=== PATIENT | female | born 1990 | race Caucasian/White ===

== ENCOUNTER 2021-09-03 21:46 | Emergency (ER) | payer MEDICAID, SELFPAY ==
[2021-09-03 23:34] VITALS: BP 122/75; PULSE 67; RESP 14; TEMP 36.8; O2SAT 98; BMI 29.2
--- NOTE | 2021-09-03 23:55 | ED_ITS ---
HPI - Ear Problem General Chief complaint: Ear Problems Stated complaint: ear pain Source: patient Mode of arrival: ambulatory Limitations: no limitations History of Present Illness HPI Narrative: 31-year-old female presents for right ear pain after jumping into water and landing on her ear. She states to have this throbbing pain in her ear, and has pain in the ear when moving her jaw. She did not report any fevers or chills, denies loss of consciousness, or any other pain. MD Complaint: ear pain and decreased hearing Location: right ear Duration: constant Severity: moderate Relieving factors: nothing Exacerbating factors: chewing Context: trauma and recent swimming Discharge from ear: no Associated symptoms ear: decreased hearing Treatment prior to arrival: none Related Data Previous Rx's Medication Instructions Recorded amoxicillin 875 mg-potassium 1 tab PO Q12H 7 days #14 tabs 09/04/21 clavulanate 125 mg tablet ciprofloxacin 0.3 %-dexamethasone 4 drp otic (ears) BID 7 days #7.5 09/04/21 0.1 % ear drops,suspension mL (Ciprodex) Allergies Allergy/AdvReac Type Severity Reaction Status Date / Time aspirin [ASPIRIN] Allergy Unknown THROAT Unverified 10/30/19 18:12 CLOSES Review of Systems Review of Systems: Constitutional: No Fever, No Chills ENT/Mouth: Positive right ear Ear Pain, No Hoarseness, No sore throat Eyes: No Eye Pain, No Swelling, No Redness, No Foreign Body Cardiovascular: No Chest Pain, No SOB Respiratory: No Cough, No Dyspnea Gastrointestinal: No Nausea, No Vomiting, No Diarrhea, No abdominal Pain Genitourinary: No Dysuria, No Hematuria Musculoskeletal: No joint pain, No Myalgias, No Joint Swelling Skin: No Skin lacerations, No rash Neuro: No Weakness, No Numbness, No Paresthesias, No Loss of Consciousness, No Dizziness, No Headache Psych: No Anxiety/Panic, No Depression Heme/Lymph: no easy bruising, no Lymphadenopathy Endocrine: No Polyuria, No Polydipsia Yes all other systems are reviewed and are negative [facility] Past Medical History Attestation statement: The following information was validated with the patient. Source: old records reviewed Social History Social History Advance Directives: No Physical Exam Vital Signs: Vital Signs: Last Vital Signs Temp 98.3 F 09/03/21 23:34 Pulse 67 09/03/21 23:34 Resp 14 09/03/21 23:34 BP 122/75 09/03/21 23:34 Pulse Ox 98 09/03/21 23:34 O2 Del Method 09/03/21 23:34 BMI result Body Mass Index 29.2 Appearance: Alert. Oriented X3. No acute distress. Eyes: Pupils equal, round and reactive to light. ENT: Pharynx normal. Right tympanic membrane erythematous and bulging, intact, umbo and cone of light visualized. Left tympanic membrane intact. Neck: Normal inspection. Neck supple. No mastoid tenderness. CVS: Normal heart rate and rhythm. Pulses normal. Respiratory: No respiratory distress. Breath sounds normal. Abdomen: Soft and nontender. Skin: Skin warm and dry. Normal skin color. Normal skin turgor. Extremities: No lower extremity edema. Gait well-balanced well coordinated. Neuro: No motor deficit. No sensory deficit. Cranial nerves 2-12 intact. Course Course Course Narrative: 31-year-old female presents with right ear pain after landing on her right ear while jumping into water. Does not report any head or neck pain. As pain to the ear when moving her jaw. Right tympanic membrane is bulging and erythematous. Intact, a bow and cone of light visualized. No tenderness to the tragus or mastoid. No vertebral tenderness or step-offs. Plan of care to treat for otitis media, and otitis externa with Augmentin and Ciprodex drops. This is a [place] injury, will update Tdap vaccine at this time. 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 Patient does understand that she must follow-up with primary care physician later this week if pain persists. Patient verbalized understanding of and agrees plan of care discharge home. Verbalized understanding of signs and symptoms indicating need for emergent intervention. MDM - Ear Differential Diagnosis Differential diagnosis: Likely otitis externa, otitis media and ruptured TM Medical Records Attestation: I reviewed the patient's medical records. Discharge Plan Discharge Clinical Impression: Otitis externa, Otitis media, Eardrum trauma Patient Disposition: Home, Self-Care Instructions: Otitis Externa (ED), How to Use Ear Drops (ED), Ear Infection (ED) Additional Instructions: Lo evaluaron por te lesi?n en el o?do derecho. Perry Augmentin 875 mg dos veces al d?a yasir los pr?ximos 7 d?as. Utilice gotas de Ciprodex cada 12 horas yasir los pr?ximos 7 d?as en el o?do derecho. Use Tylenol 650 mg cada 6 horas seg?n sea necesario para controlar el dolor. Actualizamos lindsay vacuna Tdap hoy. Seguimiento con el m?dico de atenci?n primaria a finales de esta semana. Andreina por elegir colt departamento de emergencias para lindsay evaluaci?n. Por favor, dat un seguimiento con el m?dico de atenci?n primaria seg?n sea necesario. Regrese al departamento de emergencias por cualquier s?ntoma nuevo, preocupante o que empeore. You were evaluated for injury to your right ear. Please take Augmentin 875 mg twice a day for the next 7 days. Please use Ciprodex drops every 12 hours for the next 7 days to the right ear. Use Tylenol 650 mg every 6 hours as needed for pain management. We updated your Tdap vaccine today. Follow-up with primary care physician later this week. Thank you for choosing this emergency department for evaluation. Please follow-up with primary care physician as needed. Return to the emergency department for any new, concerning, or worsening symptoms. Prescriptions: New ciprofloxacin-dexamethasone [Ciprodex] 0.3-0.1 % drops,suspension 4 drp otic (ears) BID 7 Days Qty: 7.5 0RF amoxicillin-pot clavulanate 875-125 mg tablet 1 tab PO Q12H 7 Days Qty: 14 0RF Interventions: ED Discharge Assessment Last Done: 09/04/21 01:09 Discharge Date/Time: 09/04/21 01:11
[2021-09-04] MEDS: Diphth,Pertus(ACell),Tet Adult 0.5 ML SYRINGE IM (00:47)
[2021-09-04] MEDS: Amoxicillin/Potassium Clav 875 MG TABLET PO (00:47)
== END 2021-09-04 01:11 | disposition home or self-care (01) ==
PROVIDERS: Emergency Provider Emergency Medicine
DX: H60.91 Unspecified otitis externa, right ear (principal); H66.91 Otitis media, unspecified, right ear; H72.91 Unspecified perforation of tympanic membrane, right ear; Z79.899 Other long term (current) drug therapy
CPT/HCPCS: 90471; 90715; 99282; 99284

== ENCOUNTER 2023-06-04 08:16 | Outpatient (REF) | payer MEDICAID, SELFPAY ==
[2023-06-04 12:23] LABS: Alanine Aminotransferase 14 U/L (0-31); Albumin Level 4.5 g/dL (3.5-5.0); Alkaline Phosphatase 59 U/L (39-117); Anion Gap 11 (12-20); Aspartate Amino Transferase 16 U/L (5-31); Bilirubin Total 0.7 mg/dL (0.0-1.0); Blood Urea Nitrogen 13 mg/dL (9-16); Calcium 9.7 mg/dL (8.4-10.2); Carbon Dioxide 28 mmol/L (22-29); Chloride 105 mmol/L (96-108); Cholesterol 168 mg/dL (<200); Estimated Glomerular Filt Rate > 60; Glucose Random 95 mg/dL (60-115); HDL Cholesterol 36 mg/dL (>40); LDL Cholesterol Calculated 112 mg/dL (<100); Potassium 3.8 mmol/L (3.3-5.1); Sodium 140 mmol/L (135-145); Total Protein 7.7 g/dL (6.5-8.0); Triglycerides 103 mg/dL (<150)
== END 2023-06-04 08:17 | disposition home or self-care (01) ==
LOC: HO.HHCL 08:16
PROVIDERS: Visit Provider Internal Medicine Geriatric Medicine
DX: E78.1 Pure hyperglyceridemia (principal); R10.2 Pelvic and perineal pain; N92.0 Excessive and frequent menstruation with regular cycle
CPT/HCPCS: 36415; 80053; 80061

== ENCOUNTER 2023-06-04 13:53 | Outpatient (REF) | payer MEDICAID, SELFPAY ==
[2023-06-04 16:20] LABS: Hematocrit 41.9 % (37.0-47.0); Hemoglobin 13.4 g/dl (12.0-16.0)
[2023-06-04 16:56] LABS: TSH reflex Free T4 1.87 uIU/mL (0.32-4.0)
[2023-06-07 00:08] LABS: Trichomonas (NAAT) NOT DETECTED (NOT DETECTED)
[2023-06-07 02:24] LABS: HPV mRNA E6/E7 rflx Not Detected (Not Detected)
[2023-06-08 14:58] LABS: C. trachomatis RNA TMA NOT DETECTED (NOT DETECTED); N. gonorrhoeae RNA TMA NOT DETECTED (NOT DETECTED)
== END 2023-06-04 13:54 | disposition home or self-care (01) ==
LOC: HO.HHCL 13:53
PROVIDERS: Visit Provider Advanced Practice Midwife
DX: R10.2 Pelvic and perineal pain (principal); N92.0 Excessive and frequent menstruation with regular cycle; E78.1 Pure hyperglyceridemia; Z12.4 Encounter for screening for malignant neoplasm of cervix
CPT/HCPCS: 36415; 84443; 85014; 85018; 87491; 87591; 87624; 87661; 88142

== ENCOUNTER 2023-07-02 10:44 | Outpatient (REF) | payer MEDICAID, SELFPAY ==
--- NOTE | ~2023-07-02 | XR_ITS ---
EXAMINATION: XR KNEE, LEFT CLINICAL INFORMATION: EFT ANTERIOR KNEE PAIN,PT STATES PAIN SINCE 2016 SHE STATED SHE DID PLAY TRACK AND FIELD IN HER YOUTH,WHEN SHE GOES FROM CROUCHING TO STANDING SHE CAN BARELY STAND COMPARISON: Left knee December 2015 TECHNIQUE: Four views of the left knee. FINDINGS: No fracture or joint effusion. Alignment is anatomic. Joint spaces are maintained. No abnormal soft tissue calcification. XR/XR knee LT 4V IMPRESSION: Normal left knee.
[2023-07-03 09:50] LABS: HIV AB/AG Nonreactive (Nonreactive); HIV Num 1 0.06 S/CO (0.00-0.99); ~HepC Num1 0.09 S/CO (0.00-0.79); ~Hepatitis C Antibody Nonreactive (Nonreactive)
== END 2023-07-02 10:45 | disposition home or self-care (01) ==
LOC: HO.HHCL 10:44
PROVIDERS: Visit Provider Internal Medicine Geriatric Medicine
DX: M25.562 Pain in left knee (principal); Z11.59 Encounter for screening for other viral diseases; Z11.4 Encounter for screening for human immunodeficiency virus [HIV]
CPT/HCPCS: 36415; 73564; 86803; 87389